=== PATIENT | male | born 1970 | race Caucasian/White ===

== ENCOUNTER 2023-09-27 08:57 | Emergency (ER) | payer OTHER ==
[2023-09-27] MEDS ORDERED: Lidocaine 4% 1 each Patch TOP STA (09:17)
[2023-09-27] MEDS ORDERED: Diazepam 5 MG Tab PO ONE (09:17)
[2023-09-27] MEDS ORDERED: Ibuprofen 400 MG Tab PO ONE (09:17)
[2023-09-27] MEDS ORDERED: Ondansetron 4 MG Tab.DIS PO ONE (09:18)
== END 2023-09-27 09:33 | disposition home or self-care (01) ==
LOC: MW.ED 08:57
DX: M54.2 Cervicalgia (principal); Z88.0 Allergy status to penicillin
CPT/HCPCS: 99283; A9270